=== PATIENT | female | born 1995 | race Caucasian/White ===

== ENCOUNTER → 2020-02-29 | Outpatient (CLI) | payer OTHER ==
[~2020-02-29] MED LIST: none per pt
== END | disposition home or self-care (01) ==
LOC: STAR 08:49
PROVIDERS: ATTEND Orthopaedic Surgery
DX: Z20.828 Contact with and (suspected) exposure to other viral communicable diseases (principal); S83.015A Lateral dislocation of left patella, initial encounter; X58.XXXA Exposure to other specified factors, initial encounter; Y93.89 Activity, other specified; Y92.89 Other specified places as the place of occurrence of the external cause; Y99.8 Other external cause status
CPT/HCPCS: 87635

== ENCOUNTER 2020-03-05 05:17 | Day surgery (SDC) | payer OTHER ==
[~2020-03-05] VITALS: Ht 171.4 cm; Wt 59.1 kg
[2020-03-05 06:09] VITALS: BP 120/90
[2020-03-05] MEDS ORDERED: LIDOCAINE/PF 1%, 30ML ONE (06:15)
[2020-03-05] MEDS ORDERED: ROPIvacaine/PF 0.5%, 30 ML ONE (06:15)
[2020-03-05] MEDS ORDERED: EPINEPHRINE 1 MG/ML, 1ML ONE (06:15)
[2020-03-05 06:21] LABS: HCG UR SG 1.029 (1.003-1.030)
[2020-03-05] MEDS ORDERED: MIDAZOLAM 1 MG/ML, 2ML ONE (06:22)
[2020-03-05] MEDS ORDERED: FENTANYL PF 250 MCG/5ML ONE (06:26)
[2020-03-05] MEDS ORDERED: CHLORHEXIDINE 15 ML UDC MM ONE (06:30)
[2020-03-05] MEDS ORDERED: LACTATED RINGERS 1,000 ML IV SCH (06:30)
[2020-03-05] MEDS ORDERED: CEFAZOLIN 1,000 MG ONE ×2 (07:11→08:31)
[2020-03-05] MEDS ORDERED: ALBUTEROL SULFATE 2.5 MG/3 ML NPPB PRN (07:30)
[2020-03-05] MEDS ORDERED: DIPHENHYDRAMINE 50 MG/ML, 1ML IVPush PRN ×2 (07:30)
[2020-03-05] MEDS ORDERED: ACETAMINOPHEN 325 MG TABLET PO PRN (07:30)
[2020-03-05] MEDS ORDERED: MEPERIDINE/PF 25MG/0.5ML IVPush PRN (07:30)
[2020-03-05] MEDS ORDERED: OXYcodone 5 MG/5 ML ORAL.SOL UDC PO PRN (07:30)
[2020-03-05] MEDS ORDERED: MIDAZOLAM 1 MG/ML, 2ML IV PRN (07:30)
[2020-03-05] MEDS ORDERED: LABETALOL 5MG/ML, 20ML IV PRN (07:30)
[2020-03-05] MEDS ORDERED: hydrALAzine 20 MG/ML, 1ML IV PRN (07:30)
[2020-03-05] MEDS ORDERED: ONDANSETRON 2MG/ML, 2ML IVPush PRN (07:30)
[2020-03-05] MEDS ORDERED: DIAZEPAM 5 MG/ML, 2ML IVPush PRN (07:30)
[2020-03-05] MEDS ORDERED: PROMETHAZINE 12.5 MG SUPP PR PRN (07:30)
[2020-03-05] MEDS ORDERED: EPHEDRINE 50 MG/ML, 1ML IVPush PRN (07:30)
[2020-03-05] MEDS ORDERED: PROMETHAZINE 25 MG/ML, 1ML IVPush PRN (07:30)
[2020-03-05] MEDS ORDERED: HYDROmorphone 1 MG/ML, 1ML INJ IVPush PRN (07:30)
[2020-03-05] MEDS ORDERED: DEXAMETHASONE 4 MG/ML, 1ML ONE ×2 (08:31)
[2020-03-05] MEDS ORDERED: ONDANSETRON 2MG/ML, 2ML ONE ×2 (08:31)
[2020-03-05] MEDS ORDERED: PROPOFOL 10 MG/ML, 20ML ONE (08:31)
[2020-03-05] MEDS ORDERED: ROCURONIUM 10MG/ML,5ML ONE (08:31)
[2020-03-05] MEDS ORDERED: FENTANYL PF 100 MCG/2ML ONE (09:27)
[2020-03-05] MEDS ORDERED: MEPERIDINE/PF 25MG/ML,1ML ONE (09:27)
[2020-03-05] MEDS: FENTANYL PF 100 MCG/2ML IV PRN ×4 (09:39→10:04)
[2020-03-05] MEDS ORDERED: OXYcodone 5 MG/5 ML ORAL.SOL UDC ONE (09:41)
[2020-03-05] MEDS ORDERED: ACETAMINOPHEN 650 MG/20.3 ML UDC ONE (09:41)
== END 2020-03-05 11:15 | disposition home or self-care (01) ==
LOC: OUT 05:17
PROVIDERS: ATTEND Orthopaedic Surgery
DX: M22.42 Chondromalacia patellae, left knee (principal); M22.02 Recurrent dislocation of patella, left knee; M65.862 Other synovitis and tenosynovitis, left lower leg; G89.18 Other acute postprocedural pain
CPT/HCPCS: 27418; 27427; 29875; 64447; 73560; 81025; C1713; C1762; J0171; J0690; J1100; J2175; J2250; J2405; J2704; J2795; J3010; J7120; 76000